=== PATIENT | male | born 1940 | race Caucasian/White ===

== ENCOUNTER 2017-01-31 10:45 | Day surgery (SDC) | payer BC, MEDICARE ==
[2017-01-30 13:31] VITALS: BMI 28.4
[2017-01-31] MEDS ORDERED: Lidocaine 1% PF 5 ML VIAL ONE (12:17)
[2017-01-31] MEDS ORDERED: Propofol 200 MG/20 ML VIAL ONE (12:17)
[2017-01-31] MEDS ORDERED: PHENYLEPHRINE-NS 100 MCG/ML 10 ML SYRINGE ONE (12:17)
--- NOTE | 2017-01-31 12:51 | OP ---
PREOPERATIVE DIAGNOSIS: Colorectal cancer screening. DESCRIPTION OF THE PROCEDURE: After informed consent was obtained, the patient was placed in the le ft lateral decubitus position. Anesthesia administered per the Anesthesia Department. Forward endo scope was inserted into the rectum after perianal inspection and rectal exam were normal and passed to the cecum with ease. The cecum, ileocecal valve, and appendiceal orifice were normal. The termi nal ileum was normal. The prep was excellent. In the ascending colon, a small 6 mm polyp was seen and removed with snare electrocautery. The remainder of the ascending was normal. The descending, sigmoid, and rectum were normal. Retroflexion in the rectum showed radiation telangiectasias. ASSESSMENT: 1. Ascending colon polyp - status post polypectomy. 2. Radiation telangiectasias. 3. Left-sided diverticulosis coli. 4. Otherwise, normal ileal colonoscopy. RECOMMENDATIONS: Await histopathology.
--- OUTSIDE RECORDS SUMMARY | 2017-01-31 14:39 | XMS | Clinical Summary ---
:1940 Author Organization [facility] Address [address] [place] [address] Phone Care Team Providers Name Role Phone , Primary Care Provider Unavailable Allergies Active Allergy Reactions Severity Noted Date Comments No Known Allergies 04/04/2016 Current Medications Prescription Sig. Disp. Refills Start Date End Date Status aspirin 81 MG EC tablet Take 81 mg by mouth Active daily. furosemide (LASIX) 20 MG Take 20 mg by mouth Active tablet as needed . sotalol AF (BETAPACE AF) Take 80 mg by mouth Active 80 MG tablet 2 (two) times daily. lisinopril Take 10 mg by mouth Active (PRINIVIL,ZESTRIL) 10 MG daily. tablet atorvastatin (LIPITOR) 40 Take 40 mg by mouth Active MG tablet daily. levothyroxine (SYNTHROID, Take 100 mcg by Active LEVOTHROID) 100 MCG mouth Every morning tablet on an empty stomach. cholecalciferol (VITAMIN Take 1,000 Units by Active D3) 1,000 unit tablet mouth daily. metFORMIN (GLUCOPHAGE) Take 500 mg by Active 500 MG tablet mouth 2 (two) times daily with breakfast and dinner. Active Problems Problem Noted Date Chronic systolic CHF (congestive heart failure) (HCC) 04/04/2016 CAD (coronary artery disease) 09/06/2015 Social History Tobacco Use Types Packs/Day Years Used Date Never Smoker Smokeless Tobacco: Never Used Alcohol Use Drinks/Week oz/Week Comments Yes 1 Glasses of wine 0.6 Sex Assigned at Date Recorded Not on file Last Filed Vital Signs Vital Sign Reading Time Taken Blood Pressure 129/81 04/04/2016 3:[address] [facility] Pulse 60 04/04/2016 3:[address] [facility] Temperature 36.5 C (97.7 F) 04/04/2016 6:[address] [facility] Respiratory Rate 17 04/04/2016 3:[address] [facility] Oxygen Saturation 96% 04/04/2016 1:[address] [facility] Inhaled Oxygen Concentration - - Weight 96.2 kg (212 lb) 04/04/2016 6:[address] [facility] Height 177.8 cm (5' 10") 04/04/2016 6:[address] [facility] Body Mass Index 30.42 04/04/2016 6:[address] [facility] Plan of Treatment Not on file Implants Implanted Type Area Lead Installer Device Expiration Model / Identifier Date Serial / Lot Andrés [employer] Mp Pacemakers N/A: ST BLU 02/04/2018 [id number] / Implanted:Qty: 1 on 04/04/2016 by Coral Davis MD Chest MED:CARDIAC RHYM [id number] / Wall MGMT Results Not on filefrom Last 3 Months
== END 2017-01-31 13:16 | disposition home or self-care (01) ==
LOC: SDC 10:45
PROVIDERS: ATTEND Internal Medicine Gastroenterology
PROC: 0DBK8ZX Excision of Ascending Colon, Via Natural or Artificial Opening Endoscopic, Diagnostic (ICD-10-PCS; principal; 2017-01-31)
DX: Z12.11 Encounter for screening for malignant neoplasm of colon (principal); D12.2 Benign neoplasm of ascending colon; K57.30 Diverticulosis of large intestine without perforation or abscess without bleeding; K62.7 Radiation proctitis; Z95.810 Presence of automatic (implantable) cardiac defibrillator; Z95.2 Presence of prosthetic heart valve; Z98.890 Other specified postprocedural states
CPT/HCPCS: 36416; 88305; J2001; J2704

== ENCOUNTER 2020-06-16 12:37 | Outpatient (CLI) | payer BC ==
[2020-06-17 01:46] LABS: SARS-CoV-2 PCR by NAA Not Detected (NotDetected)
== END 2020-06-16 12:38 | disposition home or self-care (01) ==
LOC: LABBT 12:37
PROVIDERS: ATTEND Internal Medicine Gastroenterology
DX: Z01.812 Encounter for preprocedural laboratory examination (principal); R10.30 Lower abdominal pain, unspecified; R19.5 Other fecal abnormalities; Z86.010 Personal history of colon polyps; Z20.822 Contact with and (suspected) exposure to COVID-19
CPT/HCPCS: 87635; U0003; U0005

== ENCOUNTER 2020-06-21 08:50 | Day surgery (SDC) | payer BC ==
[2020-06-21] MEDS ORDERED: PHENYLEPHRINE-NS 100 MCG/ML 10 ML SYRINGE ONE (11:20)
[2020-06-21] MEDS ORDERED: PROPOFOL 200 MG/20 ML VIAL ONE (11:20)
[2020-06-21] MEDS ORDERED: Lidocaine 1% PF 5 ML VIAL ONE (11:20)
== END 2020-06-21 12:30 | disposition home or self-care (01) ==
LOC: SDC 08:50
PROVIDERS: ATTEND Internal Medicine Gastroenterology
PROC: 0DJ08ZZ Inspection of Upper Intestinal Tract, Via Natural or Artificial Opening Endoscopic (ICD-10-PCS; principal; 2020-06-21)
PROC: 0DJD8ZZ Inspection of Lower Intestinal Tract, Via Natural or Artificial Opening Endoscopic (ICD-10-PCS; principal; 2020-06-21)
DX: R19.5 Other fecal abnormalities (principal); K57.30 Diverticulosis of large intestine without perforation or abscess without bleeding; K62.7 Radiation proctitis; D64.9 Anemia, unspecified; E11.9 Type 2 diabetes mellitus without complications; I10 Essential (primary) hypertension; E78.00 Pure hypercholesterolemia, unspecified; E07.9 Disorder of thyroid, unspecified; Z86.010 Personal history of colon polyps; Z79.01 Long term (current) use of anticoagulants; Z79.84 Long term (current) use of oral hypoglycemic drugs; Z79.899 Other long term (current) drug therapy; Z95.810 Presence of automatic (implantable) cardiac defibrillator
CPT/HCPCS: J2704